=== PATIENT | female | born 2000 | race Two or more races ===

== ENCOUNTER 2018-01-21 14:34 | Emergency (ER) | payer OTHER ==
[~2018-01-21] VITALS: Ht 172.7 cm; Wt 67.1 kg
== END 2018-01-21 20:34 | disposition home or self-care (01) ==
LOC: ER 14:34
DX: S40.011A Contusion of right shoulder, initial encounter (principal); X58.XXXA Exposure to other specified factors, initial encounter; Y93.89 Activity, other specified; Y92.89 Other specified places as the place of occurrence of the external cause; Y99.8 Other external cause status